=== PATIENT | female | born 1970 | race Caucasian/White ===

== ENCOUNTER 2017-06-27 15:36 | Emergency (ER) | payer OTHER, SELFPAY ==
[2017-06-27 15:37] VITALS: PULSE 64; RESP 18; TEMP 36.8; O2SAT 96; BMI 26.6
--- NOTE | 2017-06-27 15:55 | XR_ITS ---
XR chest 2V HISTORY: ITS.REASON: Chest pain. ORDERING PHYSICIAN: Jai Lopez MD PATIENT AGE: 46 years COMPARISON: None available FINDINGS: The cardiomediastinal silhouette and pulmonary vascularity are within normal limits. The lungs are clear without infiltrates, suspicious nodules, or pleural effusions. No acute bony abnormalities. IMPRESSION: Negative chest, no acute finding
[2017-06-27 16:37] VITALS: BP 96/69; PULSE 60; RESP 18; O2SAT 97
[2017-06-27 16:41] LABS: Basophils % 0.6 % (0.1-2.0); Eosinophils # 0.2 K/mm3 (0.0-0.4); Eosinophils % 3.5 % (0.1-12.0); Hematocrit 43.8 % (37.0-47.0); Hemoglobin 14.2 g/dL (12.2-16.2); Lymphocytes % 30.7 K/mm3 (10-50); Mean Corpuscular HGB Conc 32.5 g/dL (31.8-35.4); Mean Corpuscular Hemoglobin 33.2 pg (27.0-31.2); Mean Corpuscular Volume 102.1 fl (81-99); Mean Platelet Volume 7.9 fl (7.4-10.4); Monocytes # 0.3 K/mm3 (0.1-1.0); Monocytes % 4.8 % (1.7-9.3); Neutrophils % 60.3 % (37.0-80.0); Platelet Count 285 K/mm3 (142-424); Red Blood Count 4.29 M/mm3 (4.20-5.40); Red Cell Distribution Width 12.5 % (11.5-17.5); White Blood Count 6.6 K/mm3 (4.8-10.8)
[2017-06-27 16:57] LABS: Alanine Aminotransferase 22 U/L (12-78); Albumin Level 3.7 gm/dL (3.4-5.0); Albumin/Globulin Ratio 0.9 (1.1-1.8); Alkaline Phosphatase 61 U/L (46-116); Anion Gap 9.8 mEq/L (5-15); Aspartate Amino Transferase 10 U/L (15-37); Bilirubin,Total 0.3 mg/dL (0.2-1.0); Blood Urea Nitrogen 14 mg/dL (7-18); Carbon Dioxide 29 mmol/L (21.0-32.0); Chloride 106 mmol/L (98-107); Creatine Kinase 59 U/L (26-192); Creatinine Clearance Estimated 125 mL/min (0-300); Creatinine,Serum 0.69 mg/dL (0.55-1.02); Estimated Glomerular Filt Rate 92 ml/min (>60); GFR (African American) 111 ML/MIN (>60); Glucose 88 mg/dL (74-106); Potassium 3.8 mmoL/L (3.5-5.1); Sodium 141 mmol/L (136-145); Total Protein,Serum 7.7 gm/dL (6.4-8.2); Troponin I < 0.02 ng/ml (0.00-0.06)
[2017-06-27 16:58] LABS: CKMB Relative Index 0.8 U/L (0-4.0); Creatine Kinase MB < 0.5 mg/ml (0.0-3.6)
--- NOTE | 2017-06-27 17:38 | [facility].EDGENADL ---
ED Disposition Clinical Impression: Cervical radiculopathy Disposition: Home, Self-Care Condition on Discharge: Good Instructions: DI for Atypical Chest Pain, DI for Cervical Radiculopathy Additional Instructions: Take prednisone 20 mg twice a day for 5 days. Awoke with your primary care physician within 1 week. Additional instructions for CHEST PAIN: See your physician as soon as possible for further evaluation. Return immediately if worsening chest pain, vomiting, shortness of breath, fever, coughing of blood. Additional instructions for NECK PAIN: See your physician as soon as possible for further evaluation. Return immediately if neck pain becomes intolerable, or if fever, numbness or weakness of your arms or legs, loss of control of your bowels or bladder. - Critical Care Critical Care Time: No Attestation: On 06/27/17, the high probability of a clinically significant, sudden or life threatening deterioration of the following system(s) required my full and direct attention, intervention and personal management. The time I documented below is in addition to time spent performing reported procedures but includes the following listed in this critical care notation. Medical Decision Making Vital Signs: 06/27/17 15:37 06/27/17 16:37 Temperature 98.2 F Temperature Source Oral Pulse Rate [Left Radial] 64 60 Respiratory Rate 18 18 Blood Pressure [Left Arm] 96/69 Blood Pressure Mean [Left Arm] 78 Blood Pressure Source [Left Arm] Automatic Cuff 02 Sat by Pulse Oximetry 96 97 Oxygen Delivery Method Room Air Room Air - Lab Data Lab Results 06/27/17 16:16: WBC 6.6, RBC 4.29, Hgb 14.2, Hct 43.8, MCV 102.1 H, MCH 33.2 H, MCHC 32.5, RDW 12.5, Plt Count 285, MPV 7.9, Neut % (Auto) 60.3, Lymph % (Auto) 30.7, [place] % (Auto) 4.8, Eos % (Auto) 3.5, Baso % (Auto) 0.6, Neut # (Auto) 4.0, Lymph # (Auto) 2.0, T[place] # (Auto) 0.3, Eos # (Auto) 0.2, Baso # (Auto) 0.0 06/27/17 16:16: Sodium 141, Potassium 3.8, Chloride 106, Carbon Dioxide 29, Anion Gap 9.8, BUN 14, Creatinine 0.69, Estimated Creat Clear 125, Estimated GFR 92, Est GFR ( Amer) 111, Glucose 88, Calcium 9.0, Total Bilirubin 0.3, AST 10 L, ALT 22, Alkaline Phosphatase 61, Total Creatine Kinase 59, CK-MB (CK-2) < 0.5, CK-MB (CK-2) Rel Index 0.8, Troponin I < 0.02, Total Protein 7.7, Albumin 3.7, Globulin 4.0 H, Albumin/Globulin Ratio 0.9 L Result diagrams: 06/27/17 16:16 06/27/17 16:16 Orders (Tests/Meds): ED MEDICATIONS Discontinued Medications Generic Name Dose Route Start Last Admin Trade Name Freq PRN Reason Stop Dose Admin Aspirin 324 mg 06/27/17 15:54 06/27/17 16:35 Aspirin 81mg Chewable Tablet PO 06/27/17 15:55 324 mg ONCE ONE Administration Methylprednisolone Sodium Succinate 125 mg 06/27/17 18:17 Solu-Medrol 125mg/2ml Vial IV 06/27/17 18:18 ONCE ONE ORDERS Category Date Time Status Cervical spine XR 5 views [XR cervical spine 5V] Stat Exams 06/27/17 18:15 Taken ECG Request by /Lor Stat Y 06/27/17 15:54 Ordered - Radiology Data #1 Image(s): Chest Image Reviewed: Yes I have reviewed radiologist's interpretation Preliminary Findings: Normal/NAD - ECG Data Tracing #1 EKG interpreted by Jai Lopez MD: Rhythm: sinus Rate: * Harrison: normal Ectopy: none Conduction: normal ST Segment Changes: none T Wave Changes: none Q Waves: none No evidence of acute ischemia or injury Baseline artifact present, but I consider the EKG adequate for accurate interpretation. - Enrike Inquiry Pt receiving controlled substance: No Medical Decision Making Narrative: PULMONARY EMBOLISM RULE-OUT CRITERIA: 1. Age > 49? No 2. Pulse greater than 99/min? No 3. Room air pulse ox <95%? No 4. Hemoptysis? No 5. On estrogen? No 6. Prior diagnosis of DVT or PE? No 7. Surgery or trauma requiring endotracheal intubation or hospitalization in past 4 wks? No 8. Unilateral leg sw
--- NOTE | 2017-06-27 18:15 | XR_ITS ---
EXAM: XR cervical spine 5V HISTORY: ITS.REASON: L cervical radiculopathy symptoms ORDERING PHYSICIAN: Jai Lopez MD PATIENT AGE: 46 years COMPARISON: None FINDINGS: Normal alignment. No fracture or dislocation. No lytic or blastic change. No significant degenerative change. The disc spaces are preserved. IMPRESSION: Negative cervical spine
[2017-06-27 19:08] VITALS: BP 91/53; PULSE 64; RESP 18; TEMP 36.8; O2SAT 97
== END 2017-06-27 19:17 | disposition home or self-care (01) ==
PROVIDERS: Emergency Provider Emergency Medicine
DX: M54.12 Radiculopathy, cervical region (principal)
CPT/HCPCS: 71046; 72050; 80053; 82550; 82553; 84484; 85025; 93005; 93041; 96374; 96375; 99283